=== PATIENT | female | born 1975 | race Caucasian/White ===

== ENCOUNTER 2017-08-05 02:24 | Emergency (ER) | payer SELFPAY ==
[~2017-08-05] VITALS: Ht 162.6 cm; Wt 55.0 kg
[2017-08-05 02:25] VITALS: BP 127/64; PULSE 99; RESP 16; TEMP 99.3; O2SAT 99
--- NOTE | 2017-08-05 02:36 | PD ---
HPI Chief Complaint: Cold / Flu Symptoms Time Seen by Provider: 02:35 Travel History International Travel<30 days: No Contact w/Intl Traveler<30days: No Traveled to known affect area: No History of Present Illness HPI 41-year-old female presents to emergency department for evaluation of cough and chest congestion. Patient also has a sore throat and mild headache. Patient states that her grandson was diagnosed with the flu today. She believes she may have this. Denies any nausea or vomiting. She does have some body aches but no significant pain. She has no other symptoms to report at this time. [facility] Past Medical History Diminished Hearing: No Thyroid Disease: Yes (hypothriodism) Tetanus Vaccination: Unknown Influenza Vaccination: Yes ?: Not LMP: 07/28/2017 Past Surgical History Surgical History: No Previous Surgery Social History Alcohol Use: Yes (occasionally) Tobacco Use: No Substance Use: No Allergies-Medications (Allergen,Severity, Reaction): Coded Allergies: levofloxacin (Verified Allergy, Severe, Anaphylaxis, 08/05/17) zolpidem (Verified Allergy, Unknown, 08/05/17) Reported Meds & Prescriptions Reported Meds & Active Scripts Active Tamiflu (Oseltamivir Phosphate) 75 Mg Cap 75 Mg PO BID 5 Days Reported Synthroid (Levothyroxine Sodium) 175 Mcg Tab 175 Mcg PO DAILY Review of Systems Except as stated in HPI: all other systems reviewed are Neg Physical Exam Narrative GENERAL: Well-nourished, well-developed female patient, in no acute distress. SKIN: Focused skin assessment warm/dry. HEAD: Normocephalic. EYES: No scleral icterus. No injection or drainage. ENT: Mucosa pink and moist. Mild erythema without exudates. No uvular edema. No uvular, palatal, or tonsillar deviation. Airway patent. Nasal turbinates appear normal without nasal blood, purulent drainage or septal hematoma. NECK: Supple, trachea midline. No JVD or lymphadenopathy. CARDIOVASCULAR: Regular rate and rhythm without murmurs, gallops, or rubs. RESPIRATORY: Breath sounds coarse, equal bilaterally. No accessory muscle use. GASTROINTESTINAL: Abdomen soft, non-tender, nondistended. MUSCULOSKELETAL: No cyanosis, or edema. BACK: Nontender without obvious deformity. No CVA tenderness. Data Data Last Documented VS Vital Signs Date Time Temp Pulse Resp B/P (MAP) Pulse Ox O2 Delivery O2 Flow Rate FiO2 1/23/18 03:59 08/05/17 02:25 99.3 99 16 99 Room Air Orders Orders Influenzae A/B Antigen (08/05/17 02:36) Chest, Single Ap (08/05/17 ) Ed Discharge Order (08/05/17 03:37) MDM Medical Decision Making Medical Screen Exam Complete: Yes Emergency Medical Condition: Yes Medical Record Reviewed: Yes Differential Diagnosis Pneumonia versus influenza versus viral syndrome versus pharyngitis Narrative Course 41-year-old female presents to the emergency department for evaluation. Patient appears nontoxic. She is mildly tachycardic. Chest x-rays without acute cardiopulmonary disease. Influenza screen is negative however due to patient's exposure to flu and flulike symptoms, I will start her on Tamiflu. I have counseled her on care and encouraged follow-up with primary care provider. She agrees to return immediately with any acute worsening of symptoms. Diagnosis Primary Impression: Flu-like symptoms Referrals: Primary Care Physician Patient Instructions: General Instructions, Influenza (ED) Additional Instructions: Rest Maintain adequate oral hydration Follow-up with your primary care provider Tylenol or ibuprofen as directed on the package as needed for fever and/or pain Return immediately to the emergency department with any acute worsening of symptoms Med/Other Pt SpecificInfo: Prescription(s) given Scripts Oseltamivir (Tamiflu) 75 Mg Cap 75 MG PO BID for Mgmt Viral Infection for 5 Days, #10 CAP 0 Refills Prov: Peggy Castro 08/05/17 Disposition: 01 DISCHARGE HOME Condition: Stable Peggy Castro Aug 05, 2017 02:36
[2017-08-05] MEDS ORDERED: SYNT175T PO (02:37)
--- NOTE | 2017-08-05 03:34 | RADRPT ---
EXAM DATE/TIME: 08/05/2017 03:06 [facility] COMPARISON: No previous studies available for comparison. INDICATIONS : Short of breath, cough. MEDICAL HISTORY : None. SURGICAL HISTORY : None. ENCOUNTER: Initial ACUITY: 1 day PAIN SCORE: 0/10 LOCATION: Bilateral chest FINDINGS: Examination was performed with the patient's underwire bra on. A single view of the chest demonstrat es the lungs to be symmetrically aerated without evidence of mass, infiltrate or effusion. The cardi omediastinal contours are unremarkable. Osseous structures are intact. CONCLUSION: The lungs are clear. Dread Mejia MD on August 05, 2017 at 3:32 Board Certified Radiologist. This report was verified electronically.
[2017-08-05] MEDS ORDERED: OSEL75 PO (03:39)
== END 2017-08-05 04:05 | disposition home or self-care (01) ==
LOC: NEPD 02:24
DX: J02.9 Acute pharyngitis, unspecified (principal); R05 Cough; R09.89 Other specified symptoms and signs involving the circulatory and respiratory systems; R51 Headache; E03.9 Hypothyroidism, unspecified; Z20.828 Contact with and (suspected) exposure to other viral communicable diseases
CPT/HCPCS: 71045; 87804; 99283